=== PATIENT | male | born 1965 | race Caucasian/White ===

== ENCOUNTER 2018-05-18 08:05 | Outpatient (CLI) | payer BC, OTHER ==
--- NOTE | 2018-05-18 13:03 | ULT ---
HEPATIC AND SPLENIC ULTRASOUND: HISTORY: Hepatic and splenic lesions seen on MRI at another facility. FINDINGS: Multiple longitudinal and transverse images of the liver and spleen are obtained using a multihertz curvilinear transducer. Real-time and color flow and spectral waveform Doppler analysis is used to e valuate the abdomen. Areas of hypodensity are seen measuring approximately 3.0 x 1.9 cm seen in the right hepatic lobe. U nfortunately, I do not have access to previous comparison outside MRI. I do recommend correlation wi th previous scan. I do not have access to location and images. Correlate with clinical evaluation o f outside images. No evidence of ascites seen. No evidence of cholelithiasis seen. Normal hepatopetal flow is seen. The spleen is grossly unremarkable on sonography. Right and left kidneys demonstrate no evidence of hydronephrosis or masses. The common bile duct is of normal size measuring 6 mm. IMPRESSION: Hypoechoic area possibly representing a cyst in the liver. Correlate with outside MRI images. POS: [facility]
== END 2018-05-18 08:06 | disposition home or self-care (01) ==
LOC: NAV ULT 08:05
PROVIDERS: ATTEND Internal Medicine
DX: K76.9 Liver disease, unspecified (principal); R93.2 Abnormal findings on diagnostic imaging of liver and biliary tract
CPT/HCPCS: 76700